=== PATIENT | female | born 1995 | race Asian ===

== ENCOUNTER 2025-05-03 22:48 | Emergency (ER) | payer MEDICAID ==
[~2025-05-03] VITALS: Ht 157.5 cm; Wt 63.5 kg
[2025-05-03] MEDS ORDERED: TDAP [DIPH/PERTUSSIS/TET] 0.5 ML VIAL IM ONE (23:12)
[2025-05-03] MEDS: TDAP [DIPH/PERTUSSIS/TET] 0.5 ML VIAL IM ONE (23:14)
[2025-05-03] MEDS: IV NS 0.9% 1,000 ML BAG IV ONE (23:14)
[2025-05-03 23:20] LABS: PLATELET COUNT (AUTO) 333 K/uL (150-450); RED BLOOD CELL COUNT(AUTO) 4.44 MIL/uL (4.0-5.2); RED CELL DISTRIBUTION WIDTH 13.1 % (11.5-15.0); WHITE BLOOD COUNT (AUTO) 8.0 K/uL (4.3-11.0)
[2025-05-03 23:28] LABS: CALCIUM, SERUM 9.2 mg/dL (8.5-10.1); CREATININE 0.9 mg/dL (0.6-1.3); SODIUM SERUM 139 mmol/L (136-145); UREA NITROGEN, BLOOD 22 mg/dL (7-18)
[2025-05-03 23:33] LABS: ASPARTATE AMINOTRANSFERASE 15 U/L (15-37); TOTAL PROTEIN, SERUM 8.3 g/dL (6.4-8.2)
[2025-05-03 23:38] LABS: BAND % (MANUAL) 1 % (0.0-5.0); EOSINOPHILS % (MANUAL) 1 % (0-4); LYMPHOCYTES % (MANUAL) 56 % (16-48); MONOCYTES % (MANUAL) 3 % (0-11.0); NEUTROPHILS % (MANUAL) 39 (42-76)
[2025-05-03 23:39] LABS: PLATELET ESTIMATE ADEQUATE
[2025-05-04] MEDS ORDERED: POTASSIUM CHLORIDE 20 MEQ TAB.PRT.SR PO ONE (00:55)
[2025-05-04] MEDS: POTASSIUM CHLORIDE 20 MEQ TAB.PRT.SR PO ONE (00:55)
[2025-05-04 02:35] VITALS: BP 119/80; TEMP 98.6; O2SAT 98
== END 2025-05-04 02:36 | disposition home or self-care (01) ==
LOC: ER 22:51
DX: S01.81XA Laceration without foreign body of other part of head, initial encounter (principal); R55 Syncope and collapse; R07.9 Chest pain, unspecified; M25.562 Pain in left knee; R51.9 Headache, unspecified; E87.6 Hypokalemia; R10.2 Pelvic and perineal pain; Z88.2 Allergy status to sulfonamides; W18.39XA Other fall on same level, initial encounter; Y93.89 Activity, other specified; Y92.511 Restaurant or cafe as the place of occurrence of the external cause; Y99.8 Other external cause status
CPT/HCPCS: 12013; 36415; 70450; 71045; 73030; 73564; 80048; 80076; 84484; 84702; 85007; 85027; 90715; 93005; 96360; 99285; A6403; J7030

== ENCOUNTER 2025-05-10 09:22 | Emergency (ER) | payer MEDICAID ==
[~2025-05-10] VITALS: Ht 157.5 cm; Wt 63.5 kg
[2025-05-10 09:26] VITALS: BP 106/71; TEMP 98.1; O2SAT 99
[2025-05-10] MEDS ORDERED: ERYT3.5O9 LEFTEYE (09:55)
== END 2025-05-10 10:05 | disposition home or self-care (01) ==
LOC: ER 09:25
DX: S01.112D Laceration without foreign body of left eyelid and periocular area, subsequent encounter (principal); H01.009 Unspecified blepharitis unspecified eye, unspecified eyelid; Z48.02 Encounter for removal of sutures; X58.XXXD Exposure to other specified factors, subsequent encounter